=== PATIENT | female | born 1985 | race African-American/Black ===

== ENCOUNTER 2024-08-17 16:58 | Emergency (ER) | payer MEDICAID ==
[~2024-08-17] VITALS: Ht 167.6 cm; Wt 79.5 kg
[~2024-08-17 16:58] MED LIST: ANTIVERT 25MG25 MG PO; COLACE 100100 MG/CAP PO; FERROUS SU325 MG/TAB PO; MOTRIN 600600 MG/TAB PO; PRENATAL VITAMI1 TA5 PO
[2024-08-17 17:14] VITALS: TEMP 99
[2024-08-17] MEDS ORDERED: Benzonatate 100 MG CAP PO ONE (19:00)
[2024-08-17] MEDS ORDERED: Azithromycin 250 MG TAB PO ONE (20:15)
[2024-08-17] MEDS ORDERED: CEFTIN500 MG PO (20:20)
[2024-08-17] MEDS ORDERED: ZITHROMAX Z PA250 MG PO (20:20)
[2024-08-17] MEDS ORDERED: dexAMETHasone 4 MG TAB PO ONE (20:30)
[2024-08-17] MEDS ORDERED: Cefuroxime 250 MG TAB PO ONE (20:30)
[2024-08-17 20:40] VITALS: BP 123/84; PULSE 78
== END 2024-08-17 20:40 | disposition home or self-care (01) ==
LOC: COL.ER 16:58
DX: J18.9 Pneumonia, unspecified organism (principal); J02.9 Acute pharyngitis, unspecified; R05.9 Cough, unspecified
CPT/HCPCS: J8540

== ENCOUNTER → 2024-09-06 | Outpatient (CLI) | payer MEDICAID ==
[~2024-09-06] MED LIST changes: +CEFTIN500 MG PO; +ZITHROMAX Z PA250 MG PO
== END ==
LOC: MHCPAIN 14:03
DX: M54.2 Cervicalgia (principal); F07.81 Postconcussional syndrome; V89.9XXS Person injured in unspecified vehicle accident, sequela; G43.909 Migraine, unspecified, not intractable, without status migrainosus
CPT/HCPCS: G0463